=== PATIENT | male | born 1995 | race Caucasian/White ===

== ENCOUNTER 2017-08-13 16:00 | Emergency (ER) | payer OTHER ==
[~2017-08-13] VITALS: Ht 177.8 cm; Wt 65.0 kg
[2017-08-13 16:11] VITALS: TEMP 36.5; Ht 177.8 cm; Wt 65.0 kg
--- NOTE | 2017-08-13 16:11 | EMERGENCY ROOM VISIT NOTE ---
History Report prepared by Barney: See [place] Under the Supervision of: Dr. Kee Galindo M.D. First contact with patient: 16:02 Stated Complaint: ALCOHOL History of Present Illness The patient is a 22 year old male who presents to the Emergency Room for evaluation for constant alcohol intoxication beginning a few hours ago. He states that he began drinking alcohol early this morning for the [employer] game. Per EMS, the patient was found to laying on the ground outside. He was noted to have been incontinent of urine. His BSG was found to be 102 on scene. The patient denies any other drug use. He denies attempting to harm himself. He denies any chest pain or LOC. Source of History: patient, EMS Onset: A few hours ago Quality: other (alcohol intoxication) Timing: constant Associated Symptoms: No LOC, No chest pain Note: Additional symptoms: urinary incontinence. Review of Systems See HPI for pertinent positives & negatives. A total of 10 systems reviewed and were otherwise negative. Past Medical & Surgical Medical Problems: (1) No Known Active Medical Problems (2) Rotator cuff injury Family History No pertinent family history stated. Social History Alcohol Use: occasionally Marital Status: in relationship Current/Historical Medications No Active Prescriptions or Reported Meds Allergies Coded Allergies: No Known Allergies (Unverified , 08/13/17) Physical Exam Vital Signs Date Time Temp Pulse Resp B/P (MAP) Pulse Ox O2 Delivery O2 Flow Rate FiO2 08/13/17 17:40 85 20 131/85 99 08/13/17 16:11 36.5 75 20 144/93 94 Room Air Physical Exam General: Mild to moderately intoxicated young male in no acute distress. Speech is slightly slurred, but answers questions appropriately. Smells of alcohol. HEENT: Normal cephalic atraumatic. Pupils are equal round and reactive to light. Extraocular movements are intact. Oropharynx is pink with moist mucous membranes. No swelling of the mouth lips or tongue. Neck: Supple with a midline trachea. No meningeal signs or stiffness, no JVD or bruits. No Stridor. Chest: Clear to auscultation bilaterally. No wheezes or rhonchi. No increased work of breathing. Heart: regular rate and rhythm. Abdomen: Soft nontender, nondistended without rebound guarding or rigidity. Extremities: No cyanosis clubbing or edema. No calf tenderness or assymetry Spine/Back. Non tender to palpation. No CVA tenderness Skin: Good turgor without rashes. Neurologic exam: Cranial nerves two through 12 are intact. Motor and sensation are intact and symmetrical throughout. Medical Decision & Procedures ED Course 1603: Past medical records reviewed. The patient was evaluated in room B11A, and a complete history and physical examination were performed. 175: I reassessed the patient. He is awake and alert, looking for a sober ride home. 180: Upon reevaluation, the patient is resting comfortably. Sober friends have arrived to take him home. I discussed the results and treatment plan with him. The patient verbalized agreement of the treatment plan. The patient was discharged home. Medical Decision Differentials include, but are not limited to; alcohol intoxication, trauma, and hypoglycemia. This patient comes in as described above. He was brought in after being found intoxicated and a sleeping the rest. He admits to lying down in the grass and he says he drank too much alcohol. He denies any coingestions. He denies any fall or trauma. He denies any tried to hurt himself. Blood sugar was normal when checked on route. At this point, he is able answer all questions appropriately and was being observed in the ER until we can find a sober friend. He was observed in the ER for just over 2 hours she remained stable and cooperative and he did sober up significantly. He denies any other complaints and has remained stable. His sober friends came up and showed up in the ER they are going to take him home. He should not drinking more alcohol he return if any new problems or concerns. Impression Primary Impression: Alcohol intoxication Scribe Attestation The scribe's documentation has been prepared under my direction and personally reviewed by me in its entirety. I confirm that the note above accurately reflects all work, treatment, procedures, and medical decision making performed by me. Departure Information Dispostion Home / Self-Care Prescriptions No Active Prescriptions or Reported Meds Forms HOME CARE DOCUMENTATION FORM, IMPORTANT VISIT INFORMATION Patient Instructions Alcohol Intoxication - [facility], My [facility] Additional Instructions Rest. Do not drink any more alcohol. Return if: Any new problems or concerns.
[2017-08-13 18:10] VITALS: BP 131/85; PULSE 85; O2SAT 99
== END 2017-08-13 18:11 | disposition home or self-care (01) ==
LOC: C.EDB 16:04
DX: F10.920 Alcohol use, unspecified with intoxication, uncomplicated (principal); Y90.5 Blood alcohol level of 100-119 mg/100 ml